=== PATIENT | female | born 1975 | race Two or more races ===

== ENCOUNTER 2018-07-01 09:00 | Outpatient (AMBR) | payer OTHER, SELFPAY ==
--- NOTE | 2018-06-17 12:10 | PTNOTE_ITS ---
PT OP Initial Eval Patient Information Pediatric or Adult Patient: Adult PT >13 Visit Reasons: knee pain Medical Diagnosis: R knee chondroplasty Treatment Dx #1: Ms weakness Start of Care: 06/17/18 Date of Onset: May 18, 2018 Initial Assessment Subjective 42 y/o female who is S/P R knee chordroplasty of medial femoral condyle, Patellofemoral chondromalacia. 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 On the day of onset she was sitting on the chair and when she stood up she heard her Knee pop. Initially they think it was meniscal or ligamentous injury but after the procedure MD told her it was her cartilage that was affected. She states she feels weak and that she almost fall multiple times due to ms weakness. She lives on the 2nd floor apt and that she has to manage steps and that it is hard for her to ascend and descend stairs. She has mild pain on the knee at the time of evaluation. Objective (+) mild edema of R LE R Quadriceps Muscle strength is 3+/5 R hamstrings 4/5 Knee flexion and extension is WNL Assessment Patient will needs PT for strengthening ex on R LE, manual therapy and modalities as needed to promote ms strength on quadriceps, hamstring ms to decrease risk of falls and be able to return to her PLOF. Short Term and Business Unit Leader Goals 1. Increase ms strength on quads and hamstrings to 5/5 to be able to negotiate steps without difficulty. 2. To be I with HEP. Treatment Plan Thera ex Manual tx Modalities (hmp, cold pack) Frequency and Duration 2x/wk x 6 weeks Certification Dates: 06/17/2018 09/14/2018
--- NOTE | 2018-06-24 10:47 | PT.ODAYNRPT ---
PT Outpatient Daily Note Date of Service: June 24, 2018 OP Daily Note Visit Reasons: knee pain Outpatient Physical Therapy Treatment Date: 06/24/18 Subjective: pt reported having 4/10 pain level upon visit and does not take pain meds. Objective: see flow sheet. Assessment: observed extension lag of the RLE while in long sitting position so added calf stretch to loosen up the posterior muscle groups. pt was having pain and discomfort with the SAQs as she can feel the bones rubbing. pt can ascend and descend the small step with no compensation and maintains good posture. the later steps were a bit more discomfort but she was able to complete with no difficulty. pt felt better after the sci-fit. overall she tolerated well. reviewed HEP. Plan: continue POC per PT. Length of Time (minutes) of Treatment: 30 Minutes Office Procedures PT Procedures PT Date of Service: 06/24/18 Therapeutic Exercise 30 minutes: Yes PT Procedures PT Date of Service: 06/17/18 OP PT Eval Mod Complex 30 minutes: Yes
--- NOTE | 2018-07-01 11:12 | PT.ODAYNRPT ---
PT Outpatient Daily Note Date of Service: July 01, 2018 OP Daily Note Visit Reasons: knee pain Outpatient Physical Therapy Treatment Date: 07/01/18 Subjective: pt reported feeling sore after last visit but continued with HEP. Objective: see flow sheet. Assessment: added new exercises using thera band and also increased the step height as she ascends and descends the steps. pt tolerated all ther ex well with no complaints. during the stepper stretch she felt more stretch on the RLE indicating tightness from compensation. advised pt to continue stretches and HEP. ice pack post ther ex to decrease soreness and pain. Plan: continue POC per PT. Length of Time (minutes) of Treatment: 30 Minutes Office Procedures PT Procedures PT Date of Service: 06/24/18 Therapeutic Exercise 30 minutes: Yes PT Procedures PT Date of Service: 07/01/18 Therapeutic Exercise 30 minutes: Yes PT Procedures PT Date of Service: 06/17/18 OP PT Eval Mod Complex 30 minutes: Yes
== END 2018-07-01 23:59 | disposition home or self-care (01) ==
PROVIDERS: PCP Family Medicine; Referring Provider Family Medicine; Visit Provider Specialist
DX: M22.41 Chondromalacia patellae, right knee (principal); Z98.890 Other specified postprocedural states
CPT/HCPCS: 97110; 97162

== ENCOUNTER 2018-07-27 13:00 | Outpatient (AMBR) | payer OTHER, SELFPAY ==
--- NOTE | 2018-07-05 10:40 | PT.ODAYNRPT ---
PT Outpatient Daily Note Date of Service: July 05, 2018 OP Daily Note Visit Reasons: knee pain Outpatient Physical Therapy Treatment Date: 07/05/18 Subjective: pt reported being sore after last visit but is doing better today. Objective: see flow sheet. Assessment: added new stretch for the R quads in which pt was not able to flex the knee and hold so used the green strap. advised pt to continue stretch at home. pt did use rails for upright posture during stretch. added ankle weight for some exercises in which she tolerated well but corrected pt's SLR to activate the quads for each rep. pt has good quad activation which causes muscle fatigue. Plan: continue POC per PT. Length of Time (minutes) of Treatment: 30 Minutes Office Procedures PT Procedures PT Date of Service: 07/05/18 Therapeutic Exercise 30 minutes: Yes
--- NOTE | 2018-07-08 11:29 | PT.ODAYNRPT ---
PT Outpatient Daily Note Date of Service: July 08, 2018 OP Daily Note Visit Reasons: knee pain Outpatient Physical Therapy Treatment Date: 07/08/18 Subjective: pt states she has been going through family emergency and has not had time for HEP. pt was on he way to family emergency right after PT. Objective: see flow sheet. Assessment: pt got her a little late so focused on some stretching and ther ex. single leg on the step ups now and she did good as there was no compensations nor complaints. for the quad stretch pt does need to hold onto the rail to keep upright and not lean forward. increased the number of laps for the exercises in the PB. pt had muscle fatigue after exercises but cold pack helped decrease the pain. Plan: continue POC per PT. Length of Time (minutes) of Treatment: 30 Minutes Office Procedures PT Procedures PT Date of Service: 07/05/18 Therapeutic Exercise 30 minutes: Yes PT Procedures PT Date of Service: 07/08/18 Therapeutic Exercise 30 minutes: Yes
--- NOTE | 2018-07-21 13:19 | PT.ODAYNRPT ---
PT Outpatient Daily Note Date of Service: July 21, 2018 OP Daily Note Pediatric or Adult Patient: Adult PT >13 Visit Reasons: knee pain Outpatient Physical Therapy Treatment Date: 07/21/18 Subjective: Patient still complains of pain on the R knee Objective: Pls see FS for therapy procedures today Assessment: Patient was seen for 5 tx sessions so far. Patient still has pain on the R knee and as per patient the L knee has swelling occasionally. She has a hard time ambulating even doing the grocery shopping. She has difficulty ascending and descending steps. Patient was given strengthening ex focusing more on quadriceps ms. Standing balance today using bosu ball and mini squats done. Patient has poor to fair balance during standing. Plan: to continue POC toward goals. Pain Present Currently: Yes Length of Time (minutes) of Treatment: 30 Minutes Office Procedures PT Procedures PT Date of Service: 07/05/18 Therapeutic Exercise 30 minutes: Yes PT Procedures PT Date of Service: 07/08/18 Therapeutic Exercise 30 minutes: Yes
--- NOTE | 2018-07-27 16:11 | PT.ODAYNRPT ---
PT Outpatient Daily Note Date of Service: July 27, 2018 OP Daily Note Pediatric or Adult Patient: Adult PT >13 Visit Reasons: knee pain Outpatient Physical Therapy Treatment Date: 07/27/18 Subjective: I still feel pain Objective: pls see FS Assessment: Patient were given strengthening ex on R LE. Patient has muscle weaknes son RLE which is evident on single leg stance. unable to complete posterior step down due to ms weakness. Kinesiotaping applied on her R anterior knee. Patient were educated to apply ice on her R knee at home. Patient verbalized understanding. Plan: To continue pOC toward goals. Pain Present Currently: Yes Length of Time (minutes) of Treatment: 30 Minutes Office Procedures PT Procedures PT Date of Service: 07/21/18 Therapeutic Exercise 30 minutes: Yes PT Procedures PT Date of Service: 07/05/18 Therapeutic Exercise 30 minutes: Yes PT Procedures PT Date of Service: 07/08/18 Therapeutic Exercise 30 minutes: Yes
== END 2018-08-01 23:59 | disposition home or self-care (01) ==
PROVIDERS: PCP Family Medicine; Referring Provider Family Medicine; Visit Provider Family Medicine
DX: R53.1 Weakness (principal); G35 Multiple sclerosis; Z98.890 Other specified postprocedural states
CPT/HCPCS: 97110

== ENCOUNTER 2019-06-03 14:30 | Outpatient (AMBR) | payer OTHER, SELFPAY ==
--- NOTE | 2019-05-18 16:09 | PTNOTE_ITS ---
PT OP Initial Eval Patient Information Visit Reasons: POST OP RIGHT KNEE Medical Diagnosis: Right Knee Pain Treatment Dx #1: Right Knee Pain Treatment Dx #2: Right Knee Weakness Start of Care: 05/18/19 Initial Assessment Subjective Pt is a 43 y/o female s/p right knee arthroscopic surgery 04/05/19 secondary to internal derangement of the knee. Pt mention that first surgery was done at the beginning of the year which did not help. Pt's knee pain (2/10) has been better since the prednisone. Pt currently has difficulty with prolonged walking, standing, chores, self care, recreational activities, and performing normal ADLs. Objective Right Knee AROM: 0 deg to 130 deg Right Knee MMTs Quads: 3+/5 Hs: 3+/5 Right Hip MMTs Glute Med: 3/5 Glute Max: 3/5 Knee Cap Mobility: decrease medial and lateral glide SLS: 2 sec with increase knee instaiblity Assessment Pt demonstrate knee pain and strength deficits s/p right knee arthroscopic surgery leading to decline function. Pt will benefit from physical therapy to increase strength, stability, and decrease knee pain Short Term and Penitentiary Goals 1) Increase right knee MMTs to 4-/5 in 6 wks to be able to perform squatting and kneeling activities 2) Increase right hip MMTs to 3+/5 in 6 wks to be able to ambulate more than 1.5 hr 3) Decrease knee pain to 1/10 in 6 wks to be able to perform recreational activities 4) Increase SLS to 20 sec in 6 wks to be able to perform self care activities 5) Indep with HEP Treatment Plan 1) Manual Therapy 2) Therapeutic Activities 3) Therapeutic Exercises 4) Modalities (ice, heat) 5) Balance Training Frequency and Duration 2 x wk for 6 wks Certification Dates: 05/18/19 to 08/17/19 Office Procedures PT Procedures PT Date of Service: 05/18/19 OP PT Eval Mod Complex 30 minutes: Yes
--- NOTE | 2019-05-20 15:06 | PT.ODAYNRPT ---
PT Outpatient Daily Note Date of Service: May 20, 2019 OP Daily Note Visit Reasons: POST OP RIGHT KNEE Outpatient Physical Therapy Treatment Date: 05/20/19 Subjective: pt states her knee has been doing better as she received meds for her RA. Objective: see flow sheet. Assessment: pt did have pain with isolation activation instead exercises. she was able to hold each rep for a few seconds. she tolerated the standing ther ex better. noted good knee flexion ROM during heel slides. educated pt about possible soreness. she demonstrated good endurance. ice pack post ther ex. Plan: continue POC per PT. Length of Time (minutes) of Treatment: 30 Minutes Office Procedures PT Procedures PT Date of Service: 05/18/19 OP PT Eval Mod Complex 30 minutes: Yes PT Procedures PT Date of Service: 05/20/19 Therapeutic Exercise 30 minutes: Yes
--- NOTE | 2019-05-24 14:54 | PT.ODAYNRPT ---
PT Outpatient Daily Note Date of Service: May 24, 2019 OP Daily Note Visit Reasons: POST OP RIGHT KNEE Outpatient Physical Therapy Treatment Date: 05/24/19 Subjective: Pt's knee feels good. Pt was not sore after last treatment session Objective: Please see flow chart for list of ther ex performed Assessment: cues to correct tick tock exercise. Pt performed all exercises with good tolerance and post ice help decrease knee pain as well as fatigue Plan: Continue with PT Length of Time (minutes) of Treatment: 30 Minutes Office Procedures PT Procedures PT Date of Service: 05/18/19 OP PT Eval Mod Complex 30 minutes: Yes PT Procedures PT Date of Service: 05/20/19 Therapeutic Exercise 30 minutes: Yes PT Procedures PT Date of Service: 05/24/19 Therapeutic Exercise 30 minutes: Yes
--- NOTE | 2019-05-26 14:49 | PT.ODAYNRPT ---
PT Outpatient Daily Note Date of Service: May 26, 2019 OP Daily Note Visit Reasons: POST OP RIGHT KNEE Assessment: Pt checked in but not seen. Pt was not feeling well and will like to be reschedule Office Procedures PT Procedures PT Date of Service: 05/18/19 OP PT Eval Mod Complex 30 minutes: Yes PT Procedures PT Date of Service: 05/20/19 Therapeutic Exercise 30 minutes: Yes PT Procedures PT Date of Service: 05/24/19 Therapeutic Exercise 30 minutes: Yes
--- NOTE | 2019-06-01 16:01 | PT.ODAYNRPT ---
PT Outpatient Daily Note Date of Service: June 01, 2019 OP Daily Note Visit Reasons: POST OP RIGHT KNEE Outpatient Physical Therapy Treatment Date: 06/01/19 Subjective: Pt mention that her knee was swollen and had some pain after last treatment session. Objective: Please see flow chart for list of ther ex performed Assessment: tolerate exercises with minimal pain; advised to decrease reps and change exercises due to increase knee pain after last treatment session, however, Pt is persistent in sticking to same exercises from last visit. Plan: Continue with PT Length of Time (minutes) of Treatment: 30 Minutes Office Procedures PT Procedures PT Date of Service: 05/18/19 OP PT Eval Mod Complex 30 minutes: Yes PT Procedures PT Date of Service: 05/20/19 Therapeutic Exercise 30 minutes: Yes PT Procedures PT Date of Service: 05/24/19 Therapeutic Exercise 30 minutes: Yes PT Procedures PT Date of Service: 06/01/19 Therapeutic Exercise 30 minutes: Yes
--- NOTE | 2019-06-03 14:47 | PT.ODAYNRPT ---
PT Outpatient Daily Note Date of Service: June 03, 2019 OP Daily Note Visit Reasons: POST OP RIGHT KNEE Outpatient Physical Therapy Treatment Date: 06/03/19 Subjective: Pt's knee is feeling better but isn't feeling too well. Pt mention that past few days her chest been feeling tight. Pt has gone to ER and her heart was clear but from xray they notice some gunk in her lungs. Pt has also seen her PCP and she is treating the symptoms. Objective: O2: 99% and HR: 139 bpm Assessment: Pt demonstrate SOB with exertion; Pt's O2 was normal but noted high HR after tick tock exercise. Furthermore Pt exhibit slight rasping while inhaling. Pt was stop and advised that if symptoms worsening in a few hrs to head to ER. Pt's knee ROM looks fine and normal today with minimal pain Plan: Continue with PT Length of Time (minutes) of Treatment: 15 Minutes Office Procedures PT Procedures PT Date of Service: 05/18/19 OP PT Eval Mod Complex 30 minutes: Yes PT Procedures PT Date of Service: 05/20/19 Therapeutic Exercise 30 minutes: Yes PT Procedures PT Date of Service: 05/24/19 Therapeutic Exercise 30 minutes: Yes PT Procedures PT Date of Service: 06/01/19 Therapeutic Exercise 30 minutes: Yes PT Procedures PT Date of Service: 06/03/19 Therapeutic Exercise 15 minutes: Yes
== END 2019-06-03 23:59 | disposition home or self-care (01) ==
PROVIDERS: Referring Provider Physician Assistant; Visit Provider Orthopaedic Surgery Adult Reconstructive Orthopaedic Surgery
DX: M25.561 Pain in right knee (principal); Z98.890 Other specified postprocedural states; R53.1 Weakness; R26.2 Difficulty in walking, not elsewhere classified
CPT/HCPCS: 97110; 97162

== ENCOUNTER 2024-11-14 11:04 | Emergency (ER) | payer MEDICAID, SELFPAY ==
--- NOTE | 2024-11-14 11:10 | EKG_ITS ---
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: : 1975 Requested By: Juan M Bellamy Order Number: [id number] Reading MD: Juan M Bellamy Measurements Intervals [place] Rate: 82 P: 10 GA: 148 QRS: -25 QRSD: 112 T: 31 QT: 364 QTc: 428 Interpretive Statements SINUS RHYTHM BORDERLINE LEFT AXIS DEVIATION [QRS AXIS < -20] INCOMPLETE RIGHT BUNDLE BRANCH BLOCK [90+ ms QRS DURATION, TERMINAL R IN V1/V2, 40+ ms S IN I/aVL/V4/V5/V6] Compared to ECG 10/22/2022 10:37:20 Sinus tachycardia no longer present Left anterior fascicular block no longer present Myocardial infarct finding no longer present /store/S0/[id number]/ecg/[id number].pdf
[2024-11-14 11:18] VITALS: BP 113/78; PULSE 80; RESP 17; TEMP 37; O2SAT 96
[2024-11-14 11:19] VITALS: BMI 36.6
[2024-11-14 11:52] LABS: Basophils # (Auto) 0.0 Thou/mm3 (0.0-0.2); Basophils % (Auto) 0 % (0-2.5); Eosinophils # (Auto) 0.1 Thou/mm3 (0.0-0.5); Eosinophils % (Auto) 1 % (0-10); Hematocrit 39.1 % (36.0-46.0); Hemoglobin 13.5 g/dL (12.0-16.0); Immature Granulocytes Auto 0.02 Thou/mm3 (0.00-0.00); Lymphocytes # (Auto) 3.4 Thou/mm3 (1.0-4.8); Lymphocytes % (Auto) 50 % (10-50); Mean Corpuscular HGB Conc 34.5 g/dl (31.0-37.0); Mean Corpuscular Hemoglobin 30.4 pg (25.0-35.0); Mean Corpuscular Volume 88 fL (80-100); Monocytes # (Auto) 0.5 Thou/mm3 (0.0-0.8); Monocytes % (Auto) 7 % (0-12); Neutrophils # (Auto) 2.9 Thou/mm3 (1.8-7.7); Neutrophils % (Auto) 41 % (37-80); Nucleated Red Blood Cell # 0.00 Thou/mm3 (0.00-0.00); Nucleated Red Blood Cell % 0 /100 WBC (0); Platelet Count 260 Thou/mm3 (140-440); RDW Standard Deviation 43.4 fL (36.4-46.3); Red Blood Count 4.44 Miln/mm3 (4.00-5.20); White Blood Count 6.9 Thou/mm3 (3.6-11.0)
--- NOTE | 2024-11-14 11:55 | XR_ITS ---
Examination: PA lateral chest 2 views TECHNIQUE: Upright PA lateral chest 2 views Date and time: November 14, 2024 at 1236 hours INDICATIONS: Chest pain today FINDINGS: Normal heart size The lungs are clear. The osseous structures are intact IMPRESSION: No active disease
--- NOTE | 2024-11-14 11:56 | PD.EDRME ---
Rapid Medical Screening Exam RME Arrival date/time: 11/14/24 11:04 Chief Complaint: Arrhythmia/Palpitations Vital signs: Vital Signs Temperature 98.6 F 11/14/24 11:18 Pulse Rate 80 11/14/24 11:18 Respiratory Rate 17 11/14/24 11:18 Blood Pressure 113/78 11/14/24 11:18 Pulse Oximetry (%) 96 11/14/24 11:18 Oxygen Delivery Method Room Air 11/14/24 11:18 Pulse ox room air is 96% Vital signs reviewed by provider: No RME Narrative: 49-year-old female presents to the ED with a complaint of a pain to the chest and described as like a massive weight sitting on it. Denies any radiating symptoms. Also complains of dizziness and lightheadedness. This began 2 days ago.
[2024-11-14 12:13] LABS: Alanine Aminotransferase 18 U/L (10-49); Albumin, Serum 4.3 gm/dL (3.5-5.0); Albumin/Globulin Ratio 1.5 (1.2-2.2); Alkaline Phosphatase 119 U/L (46-116); Anion Gap 10 (7-16); Aspartate Amino Transferase 21 U/L (0-34); BUN/Creatinine Ratio 10 Ratio (12-20); Bilirubin,Total 0.6 mg/dL (0.3-1.2); Blood Urea Nitrogen 10 mg/dL (9-23); Calcium 9.3 mg/dL (8.3-10.6); Calcium (Corrected) 9.3 mg/dL (8.5-10.1); Carbon Dioxide 27.7 mMol/L (20.0-31.0); Chloride 106 mMol/L (98-107); Creatinine (Component) 1.0 mg/dL (0.6-1.3); Estimated Creatinine Clearance 78.0 mL/min (>60); Globulin 2.9 gm/dL (2.3-3.5); Glucose 137 mg/dL (74-106); Osmolality,Calculated 287 (275-295); Potassium 4.3 mMol/L (3.4-5.1); Sodium 144 mMol/L (136-145); Total Protein 7.2 gm/dL (5.7-8.2); Troponin I < 0.002 ng/mL (0.0-0.045); eGFR > 60 See Note
[2024-11-14 12:28] LABS: LDH (Lactate Dehydrogenase) 162 U/L (120-246); Magnesium 1.8 mg/dL (1.6-2.6)
[2024-11-14 12:29] LABS: INR 0.9 (0.9-1.3); Partial Thromboplastin Time 27.3 Seconds (22.0-36.0); Prothrombin Time 9.9 Seconds (9.0-12.2)
[2024-11-14 13:01] LABS: B-Type Natriuretic Peptide < 20 pg/mL (0-100)
--- NOTE | 2024-11-14 17:35 | PD.EDCHEST ---
ED Chest Pain RME/HPI General Chief Complaint: Arrhythmia/Palpitations Stated Complaint: Palpitations and chest pain since 0200 Time Seen by Provider: 11/14/24 17:15 Arrival date/time: 11/14/24 11:04 Limitations: no limitations RME / HPI RME / HPI narrative: Patient states she was asleep this morning and around 2:00 AM she was awakened by right sided chest pain. She states this radiated to her right shoulder. She had right arm paresthesias. She had shortness of breath along with this. She states her symptoms have waxed and waned throughout the day. She has a history of tachycardia and takes metoprolol for this. She also has chronic pain and fibromyalgia. She denies any nausea, vomiting, or near syncope. Has no lower leg edema. She did have surgery on her left wrist approximately 2 to 3 months ago. She has no other acute complaints or concerns. Related Data Home Medications ?Medication ?Instructions ?Recorded ?Confirmed bupropion HCl 150 mg 24 hr tablet, 150 mg PO QAM 04/25/18 12/31/20 extended release (Wellbutrin XL) hydroxychloroquine 200 mg tablet 400 mg PO BID 03/28/20 12/31/20 (Plaquenil) metoprolol succinate 50 mg 50 mg PO QDAY 03/28/20 12/31/20 tablet,extended release 24 hr duloxetine 60 mg capsule,delayed 60 mg PO QDAY 08/20/20 12/28/20 release fluticasone propionate 100 1 inh inhalation QDAY 08/20/20 12/31/20 mcg/actuation blister powder for inhalation (Flovent Diskus) leflunomide 10 mg tablet 10 mg PO QDAY 08/20/20 12/31/20 montelukast 10 mg tablet 10 mg PO QDAY 08/20/20 12/31/20 Previous Rx's ?Medication ?Instructions ?Recorded albuterol sulfate 90 mcg/actuation 2 puff inhalation QID PRN 05/17/19 aerosol inhaler shortness of breath or wheezing #18 grams docusate sodium 100 mg capsule 100 mg PO QDAY #20 caps 08/23/20 (DOK) hydrocodone 10 mg-acetaminophen 1 tab PO Q6H PRN MODERATE PAIN 4-6 08/23/20 325 mg tablet #40 tabs oxycodone-acetaminophen 7.5 mg-325 1 tab PO Q8H PRN pain #20 tabs 03/23/21 mg tablet (Percocet) meloxicam 7.5 mg tablet 7.5 mg PO QDAY #14 tabs 01/12/22 ondansetron 4 mg disintegrating 4 mg PO Q8H PRN nausea and 12/19/22 tablet vomiting #14 tabs promethazine 25 mg tablet 25 mg PO TID PRN nausea and 12/19/22 vomiting #10 tabs acetaminophen 300 mg-codeine 30 mg 1 tab PO BID PRN pain #10 tabs 12/21/23 tablet cyclobenzaprine 10 mg tablet 10 mg PO HS #14 tabs 12/21/23 ondansetron 4 mg disintegrating 4 mg PO Q8H #14 tabs 12/21/23 tablet Allergies Allergy/AdvReac Type Severity Reaction Status Date / Time hydromorphone (From Dilaudid) Allergy Severe vomiting Verified 11/14/24 11:08 latex Allergy Severe skin Verified 11/14/24 11:08 irritation Review of Systems Review of Systems Systems Reviewed: All systems reviewed, normal except as documented ED Exam General Limitations: Present no limitations General appearance: Present alert and in no apparent distress Head Head exam: Present atraumatic Eye Eye exam: Present normal appearance, PERRL and EOMI ENT ENT exam: Present normal exam, normal oropharynx and mucous membranes moist Neck Neck exam: Present normal inspection, full ROM and trachea midline Chest Chest inspection: Present normal inspection and symmetric chest wall rise Respiratory Respiratory exam: Present normal lung sounds bilaterally Cardiovascular Cardiovascular exam: Present regular rate, normal rhythm and normal heart sounds Abdominal Exam Abdominal exam: Present soft and normal bowel sounds Extremities Exam Extremities exam: Present normal inspection and full ROM Back Exam Back exam: Present normal inspection and full ROM Neurological Exam Neurological exam: Present alert and oriented X3 Psychiatric Psychiatric exam: Present normal affect and normal mood Skin Skin exam: Present warm, dry, intact and normal color Course Quality Measures none Orders Category Date Time Status CT Screening NOW Care 11/14/24 19:12 Active EKG (ED ONLY) *Do not use* NOW Care 11/14/24 11:[address] angio chest Stat Exams 11/14/24 19:11 Completed EKG (ED Only) Stat Exams 11/14/24 11:10 Draft XR chest 2V Stat Exams 11/14/24 11:55 Completed BNP [B-Type Natriuretic Peptide] Stat Lab 11/14/24 11:29 Completed CBC Stat Lab 11/14/24 11:29 Completed CMP [Comprehensive Metabolic Panel] Stat Lab 11/14/24 11:29 Completed D-Dimer Stat Lab 11/14/24 17:40 Completed Drug Screen,Urine Stat Lab 11/14/24 19:54 Received LDH (Lactate Dehydrogenase) Stat Lab 11/14/24 11:29 Completed Magnesium Stat Lab 11/14/24 11:29 Completed Partial Thromboplastin Time Stat Lab 11/14/24 11:55 Completed Prothrombin Time with INR Stat Lab 11/14/24 11:55 Completed Troponin I Stat Lab 11/14/24 11:29 Completed Troponin I Stat Lab 11/14/24 17:40 Completed Urinalysis Stat Lab 11/14/24 19:54 Received Morphine Inj Med 11/14/24 20:50 Discontinued 2 mg IVP X1 ONE Vital Signs Vital signs: Vital Signs Temperature 98.6 F 11/14/24 11:18 Pulse Rate 80 11/14/24 11:18 Respiratory Rate 17 11/14/24 11:18 Blood Pressure 113/78 11/14/24 11:18 Pulse Oximetry (%) 96 11/14/24 11:18 Oxygen Delivery Method Room Air 11/14/24 11:18 Chest Pain Patient data External records reviewed:: None Clinical information provided by:: patient Social determinants that could affect healthcare access:: mental health Patient has the following chronic illnesses:: Anxiety, asthma, hypertension How is presenting disease/condition affected by chronic disease/condition?: exacerbated by Evaluation data The following diagnostics were reviewed and interpreted by me:: lab results (No leukocytosis or anemia. No metabolic derangement. D-dimer is 1910 troponin is negative. BMP is unremarkable) Lab and/or radiology exams considered but not ordered:: n/a Interpretation Summary: Workup is unremarked with exception of elevated D-dimer Medications / Prescriptions Medications or Prescriptions considered but not ordered:: n/a Medication administrations:: Medication Administration History Discontinued Medications Morphine Sulfate (Morphine Sulf Inj 10 Mg/Ml Vial) 2 mg IVP X1 ONE Stop: 11/14/24 20:51 Last Admin: 11/14/24 21:04 Dose: 2 mg Documented By: CCT See above Consultations Consultation(s) initiated? (list below): No Diagnosis Chest Pain Differential Diagnosis: unstable angina pectoris, atypical chest pain, costochondritis and chest pain Most likely diagnosis given after review of the tests above:: chest pain Admission Indicated Admission indicated?: indicated Admission Request Was there a request for admission?: No Disposition Plan Disposition Plan: Discharge Discharge Attestation Discharge Attestation: The patient and all family members were given an opportunity to ask questions and understood the discharge instructions. Discharge instructions specifically effects, indications for sooner follow up or return to the emergency department, and the expected course of current diagnosis. Patient condition: Stable Discharge Plan Plan Patient Disposition: HOME (Self Care) Patient condition on transfer: Stable Prescriptions/Referrals Prescriptions/Med Rec: No Action bupropion HCl [Wellbutrin XL] 150 mg Tablet Extended Release 24 Hr 150 mg PO QAM oxycodone-acetaminophen [Percocet] 7.5-325 mg tablet 1 tab PO Q8H MDD 3 tabs PRN (Reason: pain) Qty: 20 0RF albuterol sulfate 90 mcg/actuation HFA aerosol inhaler 2 puff INH QID PRN (Reason: shortness of breath or wheezing) Qty: 18 0RF metoprolol succinate 50 mg Tablet Extended Release 24 Hr 50 mg PO QDAY hydroxychloroquine [Plaquenil] 200 mg Tablet 400 mg PO BID leflunomide 10 mg Tablet 10 mg PO QDAY Flovent Diskus 100 mcg/actuation Blister With Device 1 inh INHALATION QDAY montelukast 10 mg Tablet 10 mg PO QDAY duloxetine 60 mg Capsule,Delayed Release(Dr/Ec) 60 mg PO QDAY hydrocodone-acetaminophen 10-325 mg Tablet 1 tab PO Q6H MDD 4 PRN (Reason: MODERATE PAIN 4-6) Qty: 40 0RF docusate sodium [DOK] 100 mg Capsule 100 mg PO QDAY Qty: 20 0RF ondansetron 4 mg tablet,disintegrating 4 mg PO Q8H PRN (Reason: nausea and vomiting) Qty: 14 0RF promethazine 25 mg tablet 25 mg PO TID PRN (Reason: nausea and vomiting) Qty: 10 0RF Rx Instructions: For breakthrough vomitting meloxicam 7.5 mg tablet 7.5 mg PO QDAY Qty: 14 0RF acetaminophen-codeine 300-30 mg tablet 1 tab PO BID PRN (Reason: pain) Qty: 10 0RF cyclobenzaprine 10 mg tablet 10 mg PO HS Qty: 14 0RF ondansetron 4 mg tablet,disintegrating 4 mg PO Q8H Qty: 14 0RF Referrals: No Primary/Family,Physician [Primary Care Provider] - In 1 week Problem List Clinical Impression: Chest pain in adult Patient/Caregiver Discharge Instructions Education Materials: ED Chest Pain, Noncardiac Additional Instructions: - Your workup today was unremarkable. - Please contact your primary doctor to schedule close follow-up appointment. - Return to the emergency room as needed for any worsening or emergent changes. Print Language: Portuguese Stand Alone Forms: Jessi Award Info., Patient Portal Info Letter
[2024-11-14 18:06] LABS: D-Dimer 1910 ng/mL (<600)
[2024-11-14 18:31] LABS: Troponin I < 0.002 ng/mL (0.0-0.045)
[2024-11-14 18:44] VITALS: BP 111/78; PULSE 82; RESP 17; TEMP 36.6; O2SAT 96
--- NOTE | 2024-11-14 19:11 | XR_ITS ---
Examination: CTA chest with intravenous contrast 2-D reconstructions 3-D reconstructions, vascular Date and time of exam: November 14, 2024 at 2051 hours INDICATIONS: Chest pain and shortness of breath today with elevated d-dimer on laboratory examination CTDI: vol (mGy) 12 DLP: (mGycm) 492 Technique: Multiple axial sections of the thorax have been obtained. 3 mm slice thickness, from below the hemidiaphragms to above the apices of the lungs. Mediastinal and lung density settings have been obtained. 2-D sagittal and coronal reconstructions. 3-D angiographic renderings, 3-D volume renderings, 3D post processing, vascular maximum intensity projections obtained. Contrast administered is 100 cc Isovue 370 2-D sagittal coronal reconstructions 3-D reconstructions Low-dose protocols, adjustment HEATHER vehicle and patient size FINDINGS: There is no thoracic aortic aneurysm dilatation Pulmonary artery segments are not enlarged No pulmonary artery emboli No paratracheal tracheobronchial or bronchopulmonary adenopathy Atelectasis versus pneumonia in the lingular segment No pulmonary edema No visualized liver and splenic lesions No hydronephrosis Absent gallbladder IMPRESSION: Negative for pulmonary artery emboli Atelectasis versus mild pneumonia in the lingular segment left upper lobe, clinical correlation advised
[2024-11-14 20:10] VITALS: BP 112/64; PULSE 73; RESP 18; TEMP 36.7; O2SAT 99
[2024-11-14 20:45] LABS: Collection Type, Urine Clean Catch
[2024-11-14] MEDS: MORPHINE SULF INJ 10 MG/ML VIAL 2 MG IVP (21:04)
[2024-11-14 21:05] VITALS: BP 108/71; PULSE 80; RESP 17; TEMP 36.7; O2SAT 98
[2024-11-14 21:32] LABS: Bacteria,Urine 2+; Bilirubin,Urine Negative (Negative); Blood,Urine Negative (Negative); Clarity,Urine Turbid (Clear/Hazy); Color,Urine Yellow (Lt Yel-Yel); Glucose, Urine Negative (Negative); Ketones,Urine Negative (Negative); Leukocyte Esterase,Urine Negative (Negative); Nitrite,Urine Negative (Negative); PH,Urine 6.0 (5.0-7.0); Protein,Urine 1+ (Neg - Trace); RBC,Urine 9 /hpf (0-3); Specific Gravity,Urine 1.041 (1.001-1.035); Squamous Epithelial Cell,Urine 24 /hpf (0-5); Urobilinogen,Urine 2.0 mg/dL (0.0-1.0); WBC,Urine 4 /hpf (0-5)
[2024-11-14 21:51] LABS: Amphetamine/Methamp Scrn,U Positive (Negative); Barbiturate Screen,Urine Negative (Negative); Benzodiazepines Screen,Urine Negative (Negative); Benzoylecgonine Screen, Ur Negative (Negative); Fentanyl Screen,Urine Negative (Negative); Opiate Screen,Urine Negative (Negative); THC Screen,Urine Positive (Negative)
[2024-11-14 21:55] VITALS: BP 110/63; PULSE 81; RESP 18; TEMP 36.6; O2SAT 97
== END 2024-11-14 21:55 | disposition home or self-care (01) ==
PROVIDERS: Physician Assistant; Physician Assistant Medical; Emergency Provider Emergency Medicine
DX: R07.89 Other chest pain (principal); I45.10 Unspecified right bundle-branch block; M79.7 Fibromyalgia
CPT/HCPCS: 36415; 71046; 71275; 80053; 80307; 81001; 83615; 83735; 83880; 84484; 85025; 85379; 85610; 85730; 93005; 96374; 99285; A4649; J2270; Q9967

== ENCOUNTER 2024-11-30 14:30 | Outpatient (RCR) | payer MEDICAID, SELFPAY ==
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
--- NOTE | 2024-11-09 13:23 | PT.ODAYNRPT ---
PT Outpatient Daily Note OP Daily Note Outpatient Physical Therapy Treatment Date: 11/09/24 Visit Reasons: carpal tunnel left and right Subjective: Doing HEP with soreness in L hand and thumb with gripping therex Objective: See F/S for therex MHP: x5' L hand Assessment: Moderate tissue irritability of L thumb with therex Plan: Continue per POC Length of Time (minutes) of Treatment: 30 Minutes Procedure Charges Therapeutic Exercise 30 minutes: Yes
--- NOTE | 2024-11-15 13:16 | PT.ODAYNRPT ---
PT Outpatient Daily Note OP Daily Note Outpatient Physical Therapy Treatment Date: 11/15/24 Visit Reasons: carpal tunnel left and right Subjective: Doing HEP with soreness in L hand and thumb with gripping therex Objective: See F/S for therex Assessment: Moderate tissue irritability of L thumb with therex Plan: Continue per POC Length of Time (minutes) of Treatment: 30 Minutes Procedure Charges Therapeutic Exercise 30 minutes: Yes
--- NOTE | 2024-11-22 10:56 | PT.ODAYNRPT ---
PT Outpatient Daily Note OP Daily Note Outpatient Physical Therapy Treatment Date: 11/22/24 Visit Reasons: carpal tunnel left and right Subjective: Pt reports hand is doing ok, has been doing HEP has some therapy tools that she uses at home. Objective: Please see flow sheet for ther ex list. Assessment: Increased weight for wrist 4 way, pt tolerated well. Plan: Continue with poC. Length of Time (minutes) of Treatment: 30 Minutes Procedure Charges Therapeutic Exercise 30 minutes: Yes
--- NOTE | 2024-11-25 15:14 | PT.ODAYNRPT ---
PT Outpatient Daily Note OP Daily Note Outpatient Physical Therapy Treatment Date: 11/25/24 Visit Reasons: carpal tunnel left and right Subjective: Pt reports hand is doing better overall but still gets occasional pain. Objective: Please see flow sheet for ther ex list. Assessment: Progressing interventions per pt tolerance. Plan: Continue with poC. Length of Time (minutes) of Treatment: 30 Minutes Procedure Charges Therapeutic Exercise 30 minutes: Yes
--- NOTE | 2024-11-30 19:28 | PT.ODAYNRPT ---
PT Outpatient Daily Note OP Daily Note Outpatient Physical Therapy Treatment Date: 11/30/24 Visit Reasons: carpal tunnel left and right Subjective: Doing HEP with soreness in L hand and thumb with gripping therex Objective: See F/S for therex Assessment: Moderate tissue irritability of L thumb with therex Plan: Continue per POC Length of Time (minutes) of Treatment: 30 Minutes Procedure Charges Therapeutic Exercise 30 minutes: Yes
== END 2024-12-01 23:59 | disposition home or self-care (01) ==
LOC: CPTX 14:30
DX: M79.642 Pain in left hand (principal); M18.12 Unilateral primary osteoarthritis of first carpometacarpal joint, left hand; Z98.890 Other specified postprocedural states; G56.01 Carpal tunnel syndrome, right upper limb; G56.02 Carpal tunnel syndrome, left upper limb; E11.9 Type 2 diabetes mellitus without complications
CPT/HCPCS: 97110; 97162

== ENCOUNTER → 2024-12-26 | Outpatient (CLI) | payer MEDICAID, SELFPAY ==
--- NOTE | 2024-12-26 14:19 | XR_ITS ---
Examination: Shoulder,right, 3 views Technique: Shoulder AP internal rotation, AP external rotation, Y view shoulder, 3 views Exam date and time :December 26, 2024, 1322 hours INDICATIONS: Right shoulder pain beginning 2 months ago. FINDINGS: Mild narrowing glenohumeral joint. No fracture or shoulder dislocation. No calcific tendinitis. IMPRESSION: Mild narrowing glenohumeral joint.
== END | disposition home or self-care (01) ==
PROVIDERS: PCP Nurse Practitioner Family; Referring Provider Nurse Practitioner Family; Visit Provider Nurse Practitioner Family
DX: M25.811 Other specified joint disorders, right shoulder (principal)
CPT/HCPCS: 73030

== ENCOUNTER 2024-12-28 13:00 | Outpatient (RCR) | payer MEDICAID, SELFPAY ==
--- NOTE | 2024-12-02 16:06 | PT.ODAYNRPT ---
PT Outpatient Daily Note OP Daily Note Outpatient Physical Therapy Treatment Date: 12/02/24 Visit Reasons: Carpal tunnel left and right Subjective: Pt reports hand is doing better but still has difficulty reaching behind back to pinch and doff bra and opening jars and water bottles. Objective: Please see flow sheet for ther ex list. Assessment: Added interventions to work on pinch strength and functional reaching behind back. Plan: Continue wit poC. Length of Time (minutes) of Treatment: 30 Minutes Procedure Charges Therapeutic Exercise 30 minutes: Yes
--- NOTE | 2024-12-06 13:43 | PT.ODAYNRPT ---
PT Outpatient Daily Note OP Daily Note Outpatient Physical Therapy Treatment Date: 12/06/24 Visit Reasons: Carpal tunnel left and right Subjective: No new complaints. Objective: Please see flow sheet for ther ex list. Assessment: Pt demonstrates improved tolerance with intervention assigned and progression of exercises indicating progress. Plan: Continue with POC. Length of Time (minutes) of Treatment: 30 Minutes Procedure Charges Therapeutic Exercise 30 minutes: Yes
--- NOTE | 2024-12-08 15:26 | PT.ODAYNRPT ---
PT Outpatient Daily Note OP Daily Note Outpatient Physical Therapy Treatment Date: 12/08/24 Visit Reasons: Carpal tunnel left and right Subjective: Doing HEP with soreness in L hand and thumb with gripping therex. 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 Objective: See F/S for therex Assessment: Min/Moderate tissue irritability of L thumb with therex Plan: Continue per POC Length of Time (minutes) of Treatment: 30 Minutes Procedure Charges Therapeutic Exercise 30 minutes: Yes
--- NOTE | 2024-12-12 14:51 | PT.ODAYNRPT ---
PT Outpatient Daily Note OP Daily Note Outpatient Physical Therapy Treatment Date: 12/12/24 Visit Reasons: Carpal tunnel left and right Subjective: Doing HEP with soreness in L hand and thumb with gripping therex. She has had some wrist and hand soreness with HH chores. Objective: See F/S for therex Assessment: Min/Moderate tissue irritability of L thumb with therex Plan: Continue per POC Length of Time (minutes) of Treatment: 30 Minutes Procedure Charges Therapeutic Exercise 30 minutes: Yes
--- NOTE | 2024-12-19 15:02 | PT.ODAYNRPT ---
PT Outpatient Daily Note OP Daily Note Outpatient Physical Therapy Treatment Date: 12/19/24 Visit Reasons: Carpal tunnel left and right Subjective: Pt reports L hand is improving but is currently limited due to severe R shoulder pain. Objective: Please see flow sheet for ther ex list. L JAG score 70lbs. Assessment: Pt reports progress with L hand, mentioned she can groom hair with 2/10 pain. Pt can lift a gallon of mild with L hand. Pt able to perform malcolm carry with 5lb dumbbell in clinic with no complaints. Plan: Pt has 2 visits left. Length of Time (minutes) of Treatment: 30 Minutes Procedure Charges Therapeutic Exercise 30 minutes: Yes
--- NOTE | 2024-12-26 17:42 | PT.ODAYNRPT ---
PT Outpatient Daily Note OP Daily Note Outpatient Physical Therapy Treatment Date: 12/26/24 Visit Reasons: Carpal tunnel left and right Subjective: Doing HEP with soreness in L hand and thumb with gripping therex. She has had some wrist and hand soreness with HH chores. Objective: See F/S for therex Assessment: Min/Moderate tissue irritability of L thumb with therex Plan: Continue per POC Length of Time (minutes) of Treatment: 30 Minutes Procedure Charges Therapeutic Exercise 30 minutes: Yes
--- NOTE | 2024-12-28 13:34 | PT.ODS1RPT ---
PT OP Progress/Discharge Note Date of Service: 12/28/24 Progress Note/DC Note Progress Note/Discharge Note: DC Note Patient Information Visit Reasons: Carpal tunnel left and right Service Continue Service or Discharge: Discharge Discharge Date: 12/28/24 Status Subjective: Pt reports less L hand pain and that she is doing hair care and HH chores with min pain. Objective: [employer] strength: R: 90 lbs, L: 70 lbs L wrist AROM: Strength Flexion: 60 deg 4/5 Extension: 50 deg 4/5 L thumb AROM; Flexion: 50 deg Extension: 50 deg Abduction: full TTP: min to none of incision scar Fist AROM: full Assessment: Pt has attended the eval and 04/14 Rx sessions with good improvement to meet all therapy goals. Pt is independent with HEP and has improved strength to over 57 lbs to meet those goals. She can carry 5 lbs and do hair care with L hand to meet those goals and is prepared to D/C with HEP. Plan: D/C with HEP Procedure Charges Therapeutic Exercise 30 minutes: Yes
== END 2025-01-01 23:59 | disposition home or self-care (01) ==
LOC: CPTX 13:00
DX: M79.642 Pain in left hand (principal); G56.01 Carpal tunnel syndrome, right upper limb; G56.02 Carpal tunnel syndrome, left upper limb; M18.12 Unilateral primary osteoarthritis of first carpometacarpal joint, left hand; Z98.890 Other specified postprocedural states
CPT/HCPCS: 97110

== ENCOUNTER → 2025-03-21 | Outpatient (CLI) | payer MEDICAID, SELFPAY ==
--- NOTE | 2025-03-21 09:30 | XR_ITS ---
MRI shoulder, right, without contrast. Date and time: March 21, 2025, 1037 hours INDICATIONS: Right shoulder pain decreased range of motion joint clicking and stiffness 6 months Technique: Multiple axial, sagittal and coronal sections of the shoulder have been obtained. Siemens high-resolution 1.5 Meggan MRI scanner is utilized. Axial fat-suppressed sections, TR 2350, TE 18 T2-weighted coronal fat-saturated images, TR 3500, TE 7100 T1-weighted coronal images, TR 500, TE 15 T2-weighted sagittal fat-saturated images, TR 3500, TE 57 T1-weighted sagittal sections, TR 504, TE 13. Findings: Supraspinatus tendon insertion is intact. Infraspinatus tendon insertion is intact. Subscapularis insertion is intact. Subscapularis bursa is not seen. Long head of the biceps is in the bicipital groove. No definite tear of the biceps superior labral anchor is seen. Retraction of the musculotendinous junction of the rotator cuff is not seen . Tendinosis pattern is moderate. Distance between the acromium and humeral head is 8.56 mm Atrophy of the supraspinatus muscle is mild . Atrophy of the infraspinatus muscle is mild. Sagittal sections demonstrate a horizontal acromion. Acromioclavicular joint demonstrates mild osteoarthritis . Osacromiale is not identified. Fraying and irregularity anterosuperior labral margins. Bony glenoid fossa on the sagittal sections does not demonstrate osseous defect. Occult fracture or area of avascular necrosis is not seen. Acromioclavicular joint separation is not visible. Defect in the posterolateral margin of the humeral head is not seen Impression: Rotator cuff intact Fraying and irregularity anterior superior labral margins
== END | disposition home or self-care (01) ==
PROVIDERS: Referring Provider Nurse Practitioner Family; Visit Provider Nurse Practitioner Family
DX: M25.811 Other specified joint disorders, right shoulder (principal)
CPT/HCPCS: 73221

== ENCOUNTER → 2025-04-13 | Outpatient (CLI) | payer MEDICAID, SELFPAY ==
--- NOTE | 2025-04-13 | XR_ITS ---
Examination: Wrist, left 3 views Technique: Wrist AP, oblique, lateral 3 views Date and time of exam: April 13, 2025, 1055 hours INDICATIONS: Wrist surgery September 2024 with pain FINDINGS: Surgical resection trapezium Osteoarthritis at the base of the first metatarsal No acute fracture No avascular necrosis Moderate narrowing radiocarpal joint IMPRESSION: Osteoarthritis as above
== END | disposition home or self-care (01) ==
DX: M19.032 Primary osteoarthritis, left wrist (principal)
CPT/HCPCS: 73110